=== PATIENT | male | born 1980 | race Caucasian/White ===

== ENCOUNTER → 2017-04-07 | Outpatient (CLI) | payer MEDICAID, OTHER ==
--- NOTE | 2017-04-07 13:29 | REP ---
MR THORACIC SPINE WITHOUT CONTRAST: HISTORY: Spondylosis. COMPARISON: 12/20/2015. A small central disc protrusion is present at the T3-4 level. There is minimal effacement of the thecal sac without spinal cord compression. The T3 neural foramina are patent. A small central disc protrusion is present at the T4-5 level. There is minimal effacement of the thecal sac without spinal cord compression. The T4 neural foramina are patent. A small right paracentral disc protrusion is present at the T5-6 level. There is minimal effacement of the thecal sac without spinal cord compression. The T5 neural foramina are patent. A small central disc protrusion is present at the T6-7 level. There is minimal effacement of the thecal sac without spinal cord compression. The T6 neural foramina are patent. There is no other disc bulge or herniation. The remaining neural foramina are patent. The spinal cord is normal in signal intensity. Normal signal intensity is present in the thoracic vertebral bodies. IMPRESSION: Small disc protrusions at the T3-4 through T6-7 levels without spinal cord compression. The disc protrusion at the T5-6 level is a new finding. Signed by Abel Cruz MD 04/07/2017 01:57 P
== END ==
LOC: M RAD 09:30
PROVIDERS: ATTEND Nurse Practitioner Family
DX: M48.8X4 Other specified spondylopathies, thoracic region (principal)

== ENCOUNTER → 2018-10-26 | Outpatient (CLI) | payer OTHER ==
--- NOTE | 2018-10-27 09:10 | REP ---
MRI LUMBAR SPINE WITHOUT CONTRAST: HISTORY: Thoracic spondylosis, bulging lumbar disc. Low back pain. No comparison lumbar spine MR study. TECHNIQUE: Sagittal and axial T1- and T2-weighted scans are acquired in the usual fashion with and without fat saturation. Sequences include spin echo, turbo spin-echo, and STIR imaging sequences. MRI FINDINGS: There is slight straightening. Lumbar vertebral body heights are preserved. Alignment is normal. Disc spaces are maintained in height and signal intensity on T1- and T2-weighted scans. There is no evidence of spondylolysis or spondylolisthesis. The conus medullaris is normal in position and appearance at L1. No extra spinal abnormality is observed. No lumbar disc protrusion is seen at any level. No neural foraminal narrowing or central canal stenosis is seen. Facets are unremarkable. IMPRESSION: Normal MRI study of the lumbar spine. Electronically Signed by Jacob Moreno MD 10/27/2018 10:08 A
--- NOTE | 2018-10-27 09:25 | REP ---
MRI thoracic spine without contrast: History: Thoracic spondylosis with myelopathy. Bulging lumbar disc. Comparison thoracic spine MRI study is from a April 07, 2017. Technique: Sagittal and axial T1 and T2-weighted scans are acquired in the usual fashion with and without fat saturation. Sequences include spin echo, turbo spin-echo, and STIR imaging sequences. MRI findings: Thoracic vertebral body heights are preserved. Alignment is normal. Cortical and medullary bone signal intensity are normal throughout the thoracic spine. Thoracic cord is normal in coarse, caliber and signal intensity on T1 and T2-weighted scans. There is a minimal degenerative narrowing of the T6-7 and T5-6 discs. There are very small central disc protrusions at T3-4 and T4-5 unchanged without cord compression. At T5-6 there is a right posterior focal disc protrusion effacing the right ventral lateral margin of the thecal sac. This is unchanged from the March 29, 2017 prior study. At T6-7, there is broad-based central disc bulging effacing the ventral margin of the thecal sac unchanged. No new thoracic disc protrusion is seen. No neural foraminal lesion is appreciated. Impression: Mild mid thoracic degenerative disc disease. There are some very small disc protrusions at T3-4, T4-5. A right posterior disc protrusion and T5-6 is again seen flattening the right ventral lateral margin of the thecal sac but not compressing the cord. Diffuse disc bulging at T6-7 is again noted. Findings unchanged. Electronically Signed by Jacob Moreno MD 10/27/2018 10:09 A
== END ==
LOC: M RAD 16:39
PROVIDERS: ATTEND Nurse Practitioner Family
DX: M47.14 Other spondylosis with myelopathy, thoracic region (principal); M51.24 Other intervertebral disc displacement, thoracic region

== ENCOUNTER → 2018-10-29 | Outpatient (CLI) | payer OTHER ==
--- NOTE | 2018-10-31 09:41 | REP ---
MRI CERVICAL SPINE WITHOUT CONTRAST: HISTORY: Neck pain. Radiculopathy. Disc protrusion. Comparison MRI study April 30, 2016. TECHNIQUE: Sagittal and axial T1- and T2-weighted scans are acquired in the usual fashion with and without fat saturation. Sequences include spin echo, turbo spin echo, and STIR imaging sequences. MRI FINDINGS: Cervical vertebral body heights are preserved. Alignment is normal. Vertebral body bone signal intensity is normal on T1- and T2-weighted scans. Axial and sagittal images at the C3-4 level demonstrate left-sided small disc protrusion with early uncovertebral spurring. This is a change from the 2016 prior study. The other intervertebral disc levels are unremarkable and unchanged. Cervical cord is normal in coarse, caliber and signal intensity. No central canal stenosis is seen. No other disc protrusion is seen. IMPRESSION: A small left disc protrusion with early uncovertebral spurring is seen at the C3-4 level. This is unchanged from the 2016 study. Otherwise negative MRI cervical spine. Electronically Signed by Jacob Moreno MD 10/31/2018 01:13 P
== END ==
LOC: M RAD 11:13
PROVIDERS: ATTEND Nurse Practitioner Family
DX: M25.78 Osteophyte, vertebrae (principal); M50.21 Other cervical disc displacement, high cervical region

== ENCOUNTER → 2019-06-14 | Outpatient (REF) | payer OTHER ==
[2019-06-14 14:01] LABS: BASO % 0.3 % (0.0-1.0); EOS # 0.4 10^3/uL (0.0-0.5); EOS % 3.9 % (0.0-3.0); HEMATOCRIT 51.4 % (42.0-52.0); HEMOGLOBIN 16.1 g/dl (13.5-17.5); LYMPH # 2.4 10^3/uL (1.5-5.0); LYMPH % 25.7 % (24.0-44.0); MEAN CORPUSCULAR HEMOGLOBIN 27.2 pg (27.0-33.0); MEAN CORPUSCULAR HGB CONC 31.3 g/dl (32.0-36.5); MEAN CORPUSCULAR VOLUME 86.7 fl (80.0-96.0); MONO # 0.5 10^3/uL (0.0-0.8); MONO % 5.4 % (0.0-5.0); NEUTROPHILS % 63.9 % (36.0-66.0); PLATELET COUNT, AUTOMATED 252 10^3/uL (150-450); RED BLOOD COUNT 5.93 10^6/uL (4.30-6.10); WHITE BLOOD COUNT 9.3 10^3/uL (4.0-10.0)
[2019-06-14 14:19] LABS: C REACTIVE PROTEIN QUANTITATIV 1.15 MG/DL (0.00-0.30); RHEUMATOID FACTOR QUANT < 10.0 IU/ML (<15.0)
[2019-06-14 14:48] LABS: ERYTHROCYTE SEDIMENTATION RATE 14 mm/hr (0-15)
[2019-06-16 00:06] LABS: ANTINUCLEAR ANTIBODIES DIRECT Negative (Negative); Lyme Disease IgG/IgM Antibodie <0.91 ISR (0.00-0.90); Lyme Disease IgM Ab Quantitati <0.80 index (0.00-0.79)
== END ==
LOC: M LABDRAW1 09:56
PROVIDERS: ATTEND Orthopaedic Surgery
DX: M25.561 Pain in right knee (principal)

== ENCOUNTER → 2021-07-15 | Outpatient (CLI) | payer OTHER | LOC: M SLEEP HO 07-10 10:20 | PROVIDERS: ATTEND Nurse Practitioner Family | DX: G47.10 Hypersomnia, unspecified (principal) ==

== ENCOUNTER → 2023-01-19 | Outpatient (CLI) | payer OTHER | LOC: M PLAIMG 13:57 | PROVIDERS: ATTEND Pain Medicine Interventional Pain Medicine | DX: M54.14 Radiculopathy, thoracic region (principal); M25.561 Pain in right knee ==